=== PATIENT | male | born 1945 | race Caucasian/White ===

== ENCOUNTER → 2017-06-30 | Outpatient (CLI) | payer MEDICARE ==
[2017-06-30 12:46] LABS: ABSOLUTE BASOPHILS # (AUTO) 0.1 10^3/uL (0.0-0.2); ABSOLUTE EOSINOPHILS # (AUTO) 0.3 10^3/uL (0.0-0.6); ABSOLUTE LYMPHOCYTES (AUTO) 1.9 10^3/uL (0.5-4.7); ABSOLUTE MONOCYTES (AUTO) 0.8 10^3/uL (0.1-1.4); EOSINOPHILS % (AUTO) 3.6 % (0-6); HEMATOCRIT 49.6 % (37.9-51.0); HEMOGLOBIN 16.9 g/dL (13.5-17.0); LYMPHOCYTES % (AUTO) 22.9 % (13-45); MEAN CORPUSCULAR HEMOGLOBIN 32.2 pg (27.0-33.4); MEAN CORPUSCULAR HGB CONC 34.1 g/dL (32.0-36.0); MEAN CORPUSCULAR VOLUME 94 fl (80-97); MONOCYTES % (AUTO) 10.4 % (3-13); PLATELET COUNT 217 10^3/uL (150-450); RED BLOOD COUNT 5.26 10^6/uL (4.35-5.55); RED CELL DISTRIBUTION WIDTH 14.7 % (11.5-14.0); SEGMENTED NEUTROPHILS % (AUTO) 62.1 % (42-78); TOTAL CELLS COUNTED % (AUTO) 100 %; WHITE BLOOD COUNT 8.1 10^3/uL (4.0-10.5)
[2017-06-30 13:27] LABS: APPEARANCE,URINE SLIGHTLY-CLOUDY; BILIRUBIN,URINE NEGATIVE (NEGATIVE); COLOR,URINE AMBER; GLUCOSE, URINE NEGATIVE (NEGATIVE); KETONES,URINE NEGATIVE (NEGATIVE); LEUKOCYTE ESTERASE,URINE NEGATIVE (NEGATIVE); NITRITE,URINE NEGATIVE (NEGATIVE); PROTEIN,URINE NEGATIVE (NEGATIVE); URINE SPECIFIC GRAVITY 1.018
--- NOTE | 2017-06-30 15:04 | RADIOLOGY REPORT (SQ) ---
EXAM DESCRIPTION: CHEST PA/LATERAL COMPLETED DATE/TIME: 06/30/2017 12:33 pm REASON FOR STUDY: PRE OP COMPARISON: None. EXAM PARAMETERS: NUMBER OF VIEWS: two views TECHNIQUE: Digital Frontal and Lateral radiographic views of the chest acquired. RADIATION DOSE: NA LIMITATIONS: none FINDINGS: LUNGS AND PLEURA: No opacities, masses or pneumothorax. No pleural effusion. MEDIASTINUM AND HILAR STRUCTURES: No masses or contour abnormalities. HEART AND VASCULAR STRUCTURES: Heart normal size. No evidence for failure. BONES: No acute findings. HARDWARE: None in the chest. OTHER: No other significant finding. IMPRESSION: NO SIGNIFICANT RADIOGRAPHIC FINDING IN THE CHEST. TECHNICAL DOCUMENTATION: JOB ID: [id number] [email or web address]- All Rights Reserved
[2017-06-30 15:34] LABS: ANION GAP 13 (5-19); BLOOD UREA NITROGEN 12 mg/dL (7-20); CARBON DIOXIDE 26 mmol/L (22-30); CHLORIDE 102 mmol/L (98-107); GLUCOSE 95 mg/dL (75-110); POTASSIUM 4.8 mmol/L (3.6-5.0); SODIUM 140.9 mmol/L (137-145)
--- NOTE | 2017-07-01 10:29 | EKG REPORT ---
SEVERITY:- ABNORMAL ECG - SINUS RHYTHM RIGHT BUNDLE BRANCH BLOCK : Confirmed by: Lesley Mohamud 01-Jul-2017 10:28:35
== END ==
LOC: OD 11:36
PROVIDERS: ATTEND Orthopaedic Surgery
DX: Z01.810 Encounter for preprocedural cardiovascular examination (principal); Z01.812 Encounter for preprocedural laboratory examination; Z01.818 Encounter for other preprocedural examination
CPT/HCPCS: 36415; 71046; 80048; 81001; 85025; 93005; 93010

== ENCOUNTER 2017-07-15 05:19 | Inpatient (IN) | payer MEDICARE ==
[~2017-07-15 05:19] MED LIST: BUPIVACAINE INJ/PF LIPOSOME/PF 266 MG/20 ML SDV IJ PRN; CEFAZOLIN INJ 1 GM VIAL IV PRN; IBUPROFEN 800 MG/NS 250 ML IV PRN; LACTATED RINGERS 1000 ML IV PRN; LANSOPRAZOLE 15 MG TAB.RAP.DR PO PRN; LIDOCAINE 0.5% INJ-PF (5 MG/ML) 50 ML SDV SUBCUT PRN; OXYCODONE HCL SR 10 MG TABLET PO PRN; VANCOMYCIN HCL 1,000 MG in DEXTROSE 5%-WATER 250 ML IV PRN
[2017-07-15] MEDS ORDERED: THROMBIN (BOVINE) TOPICAL 20000 UNIT VIAL ONE (06:40)
[2017-07-15] MEDS ORDERED: THROMBIN (BOVINE) 5000 UNIT EPITAXIS KIT ONE (06:40)
[2017-07-15] MEDS ORDERED: BUPIVACAINE INJ/PF LIPOSOME/PF 266 MG/20 ML SDV ONE (06:40)
[2017-07-15] MEDS ORDERED: PROPOFOL INJ 200 MG/20 ML VIAL IV ONE (07:06)
[2017-07-15] MEDS ORDERED: MIDAZOLAM 2 MG/2 ML INJ ONE (07:06)
[2017-07-15] MEDS ORDERED: FENTANYL CITRATE INJ/PF 100 MCG/2 ML AMPUL ONE (07:06)
[2017-07-15] MEDS ORDERED: ACETAMINOPHEN 100 ML IV ONE ×2 (07:06→15:00)
[2017-07-15] MEDS ORDERED: EPHEDRINE SULFATE INJ 50 MG/1 ML AMPULE ONE (07:07)
[2017-07-15] MEDS ORDERED: TRANEXAMIC ACID INJ/PF 1,000 MG/10 ML SDV IV ONE ×3 (07:25→10:00)
[2017-07-15] MEDS ORDERED: KETAMINE HCL INJ 500 MG/10 ML VIAL ONE (07:25)
[2017-07-15] MEDS ORDERED: FENTANYL CITRATE INJ/PF 100 MCG/2 ML AMPUL IV PRN ×3 (07:35)
[2017-07-15] MEDS ORDERED: MORPHINE SULFATE 10 MG/ML INJ IV PRN ×4 (07:35→09:09)
[2017-07-15] MEDS ORDERED: DIPHENHYDRAMINE HCL 50 MG/ML VIAL IV PRN ×2 (07:35→09:09)
[2017-07-15] MEDS ORDERED: OXYCODONE-ACETAMINOPHEN 5-325 MG TABLET PO PRN ×2 (07:35)
[2017-07-15] MEDS ORDERED: MEPERIDINE HCL/PF INJ 25 MG/1 ML DISP.SYRIN IV PRN (07:35)
[2017-07-15] MEDS ORDERED: PROMETHAZINE HCL INJ 25 MG/1 ML VIAL IV PRN ×2 (07:35)
--- NOTE | 2017-07-15 08:56 | Operative Report ---
Operative Report DATE OF SURGERY: 07/15/17 PREOPERATIVE DIAGNOSIS: Right knee arthritis OPERATION: Right knee arthroplasty SURGEON: JUAN WELDON 1ST [employer]ORDS AUDITOR: MARYLU IQBAL ANESTHESIA: Spinal TISSUE REMOVED OR ALTERED: Bone to pathology ESTIMATED BLOOD LOSS: 100 PROCEDURE: Implants used: Femur: [place] triathlon #7 CR femur Tibia: 7 tibia Tibial liner: 11 mm CS insert Patella: 40 mm oval patella Procedure with the patient supine on the operating table the right the limb is prepped and draped in a sterile fashion. The limb was elevated for exsanguination and the tourniquet inflated to 280 torr. A standard midline median parapatellar approach the knee is taken. Access is gained to the femoral canal through the intercondylar notch. Intramedullary alignment instrumentation used to resect 10 mm of distal femur in 5 of valgus. Sizing guide indicated a size 7 femur. Appropriate cutting jig is then used to fashion anterior posterior and chamfer cuts. A trial reduction femurs performed and this is judged to be adequate. Attention was next turned to the tibia. Using an extra medullary alignment system 11 millimeters was resected off the lateral tibial plateau to accommodate a defect of the medial plateau. This is sized to a size 7 tibia. A trial reduction was now performed with a 7 femur and a 7 tibia using a 11 millimeters spacer. It is full extension and central patellofemoral tracking. The articular surface the patella was next resected using an oscillating saw. All trial implants were removed. Polymethylmethacrylate is mixed and used to cement the above implants in place. On adequate curing the cement excess cement was removed the tourniquet was deflated hemostasis obtained the wound is then closed in layers using interrupted Vicryl followed by brie. A sterile compressive dressing was applied and the patient returned to recovery room in satisfactory condition.
[2017-07-15] MEDS ORDERED: (PENDING PHARMACY ID) (Ranitidine Hcl [Ranitidine Hcl] 150 MG) PO PRN (09:08)
[2017-07-15] MEDS ORDERED: ACETAMINOPHEN 325 MG TABLET PO PRN (09:09)
[2017-07-15] MEDS ORDERED: ZOLPIDEM TARTRATE 5 MG TABLET PO PRN (09:09)
[2017-07-15] MEDS ORDERED: MAG HYDROX/AL HYDROX/SIMETH SUSP 30 ML UDCUP PO PRN (09:09)
[2017-07-15] MEDS ORDERED: ONDANSETRON HCL INJ/PF 4 MG/2 ML SDV IV PRN (09:09)
[2017-07-15] MEDS ORDERED: ONDANSETRON 4 MG TAB.RAPDIS PO PRN (09:09)
--- NOTE | 2017-07-15 09:43 | RADIOLOGY REPORT (SQ) ---
EXAM DESCRIPTION: KNEE RIGHT 2 VIEWS COMPLETED DATE/TIME: 07/15/2017 9:26 am REASON FOR STUDY: Post OP -Long Cassette in PACU M17.11 UNILATERAL PRIMARY OSTEOARTHRITIS, RIGHT KN EE COMPARISON: None. NUMBER OF VIEWS: Two views TECHNIQUE: Digital radiographic images of the right knee post-procedure. LIMITATIONS: None. FINDINGS: BONES: No worrisome or unexpected findings post-procedure. DEVICE: Right total knee replacement with patellar resurfacing. Anterior skin brie. SOFT TISSUES: No worrisome findings. Expected postoperative soft tissue changes. Atherosclerotic a rterial vascular calcification IMPRESSION: SATISFACTORY POSTOPERATIVE RIGHT KNEE. TECHNICAL DOCUMENTATION: JOB ID: [id number] [employer]- All Rights Reserved
[2017-07-15] MEDS ORDERED: (PENDING PHARMACY ID) (Atenolol [Atenolol] 100 MG) PO SCH (10:00)
[2017-07-15] MEDS ORDERED: ASCORBIC ACID PO SCH (10:00)
[2017-07-15] MEDS ORDERED: LISINOPRIL PO SCH (10:00)
[2017-07-15] MEDS ORDERED: DICLOFENAC SODIUM PO SCH (10:00)
[2017-07-15] MEDS ORDERED: [UNRECOGNIZED DRUG - OTHER] PO SCH (10:00)
[2017-07-15] MEDS ORDERED: VIT B12 PO SCH (10:00)
[2017-07-15] MEDS ORDERED: FOLIC ACID PO SCH (10:00)
[2017-07-15] MEDS ORDERED: B6 PO SCH (10:00)
[2017-07-15] MEDS ORDERED: [UNRECOGNIZED DRUG - OTHER] PO SCH (10:00)
[2017-07-15] MEDS ORDERED: ASCORBATE SODIUM PO SCH (10:00)
[2017-07-15] MEDS ORDERED: LISINOPRIL 10 MG TABLET PO ONE (12:00)
[2017-07-15] MEDS ORDERED: ALLOPURINOL 300 MG TABLET PO ONE (12:30)
[2017-07-15] MEDS ORDERED: ATENOLOL 50 MG TABLET PO ONE (12:30)
[2017-07-15] MEDS: MORPHINE SULFATE 10 MG/ML INJ IM PRN ×2 (12:50→16:20)
[2017-07-15] MEDS: OXYCODONE HCL SR 10 MG TABLET PO SCH ×2 (12:51→21:08)
[2017-07-15] MEDS ORDERED: AMLODIPINE BESYLATE 2.5 MG TABLET PO ONE (13:00)
[2017-07-15] MEDS: IBUPROFEN 800 MG in NORMAL SALINE 250 ML IV SCH ×2 (15:52→21:10)
[2017-07-15] MEDS ORDERED: ASPIRIN 81 MG TABLET, ENT COATED PO ONE (17:30)
[2017-07-15] MEDS: PREGABALIN 75 MG CAPSULE PO SCH (17:54)
[2017-07-15] MEDS ORDERED: VANCOMYCIN HCL 1,000 MG in DEXTROSE 5%-WATER 250 ML IV ONE (21:00)
[2017-07-15] MEDS: ATORVASTATIN CALCIUM 40 MG TABLET PO SCH (21:08)
[2017-07-16] MEDS: LANSOPRAZOLE 30 MG TAB.RAP.DR PO SCH (06:06)
[2017-07-16] MEDS: IBUPROFEN 800 MG in NORMAL SALINE 250 ML IV SCH ×3 (06:06→21:08)
[2017-07-16 06:51] LABS: HEMATOCRIT 40.3 % (37.9-51.0); HEMOGLOBIN 13.6 g/dL (13.5-17.0); MEAN CORPUSCULAR HEMOGLOBIN 32.6 pg (27.0-33.4); MEAN CORPUSCULAR HGB CONC 33.8 g/dL (32.0-36.0); MEAN CORPUSCULAR VOLUME 96 fl (80-97); PLATELET COUNT 156 10^3/uL (150-450); RED BLOOD COUNT 4.19 10^6/uL (4.35-5.55); RED CELL DISTRIBUTION WIDTH 14.8 % (11.5-14.0); WHITE BLOOD COUNT 10.8 10^3/uL (4.0-10.5)
[2017-07-16 07:05] LABS: ANION GAP 8 (5-19); BLOOD UREA NITROGEN 16 mg/dL (7-20); CALCIUM 8.9 mg/dL (8.4-10.2); CARBON DIOXIDE 27 mmol/L (22-30); CHLORIDE 104 mmol/L (98-107); GLUCOSE 106 mg/dL (75-110); POTASSIUM 4.4 mmol/L (3.6-5.0); SODIUM 138.7 mmol/L (137-145)
[2017-07-16] MEDS ORDERED: (PENDING PHARMACY ID) (Ranitidine Hcl [Zantac 150 Mg Tablet] 150 MG) PO PRN (07:10)
[2017-07-16] MEDS ORDERED: (PENDING PHARMACY ID) (Ranitidine Hcl [Ranitidine Hcl] 150 MG) PO PRN (07:20)
[2017-07-16] MEDS ORDERED: FAMOTIDINE 20 MG TABLET PO PRN (07:21)
[2017-07-16] MEDS ORDERED: ONDANSETRON 4 MG TAB.RAPDIS PO PRN (07:30)
[2017-07-16] MEDS ORDERED: ONDANSETRON HCL INJ/PF 4 MG/2 ML SDV IV PRN (07:30)
[2017-07-16] MEDS: OXYCODONE HCL IR 5 MG TABLET PO PRN ×2 (07:57→18:01)
--- NOTE | 2017-07-16 09:09 | PDOC PROGRESS REPORT ---
Subjective Progress Note for:: 07/16/17 Reason For Visit: RIGHT KNEE ARTHRITIS 72-year-old white male postop day 1 from right knee arthroplasty. Patient complaining of right proximal thigh pain. Physical Exam Vital Signs: Temp Pulse Resp BP Pulse Ox 37.1 C 79 18 119/57 L 94 07/16/17 07:54 07/16/17 07:54 07/16/17 07:54 07/16/17 07:54 07/16/17 07:54 Intake & Output 07/15/17 07/16/17 07/17/17 06:59 06:59 06:59 Intake Total 0 4340 Output Total 1650 Balance 0 2690 General appearance: PRESENT: mild distress Head exam: PRESENT: normocephalic Respiratory exam: PRESENT: unlabored Cardiovascular exam: PRESENT: RRR Pulses: PRESENT: +1 pedal pulses bilateral Vascular exam: PRESENT: normal capillary refill GI/Abdominal exam: PRESENT: soft Rectal exam: PRESENT: deferred Extremities exam: PRESENT: other - Right knee dressing clean dry and intact. Patient able to do a straight leg raise with minimal difficulty. Mild flexion contracture present. Neurological exam: PRESENT: alert, awake, oriented to person, oriented to place , oriented to time, oriented to situation. ABSENT: motor sensory deficit Psychiatric exam: PRESENT: appropriate affect, normal mood. ABSENT: homicidal ideation, suicidal ideation Skin exam: PRESENT: dry, intact, warm. ABSENT: cyanosis, rash Results Laboratory Results: 07/16/17 06:01 07/16/17 06:01 07/16/17 07/16/17 06:01 06:01 WBC 10.8 H RBC 4.19 L Hgb 13.6 Hct 40.3 MCV 96 MCH 32.6 MCHC 33.8 RDW 14.8 H Plt Count 156 Sodium 138.7 Potassium 4.4 Chloride 104 Carbon Dioxide 27 Anion Gap 8 BUN 16 Creatinine 0.69 Est GFR ( Amer) > 60 Est GFR (Non-Af Amer) > 60 Glucose 106 Calcium 8.9 Impressions: Knee X-Ray 07/15/17 09:10 IMPRESSION: SATISFACTORY POSTOPERATIVE RIGHT KNEE. Status: Imported from PACS Assessment & Plan - Diagnosis (1) Arthritis of right knee Is this a current diagnosis for this admission?: Yes Plan: 72-year-old white male postop day 1 right knee arthroplasty. Anticipate ongoing physical therapy in house and subsequent transfer to a alf facility when bed available. - Time Time Spent with patient: 15-24 minutes Anticipated discharge: SNF Within: when bed available
[2017-07-16] MEDS ORDERED: (PENDING PHARMACY ID) (Diclofenac Sodium [Voltaren] 75 MG) PO SCH (10:00)
[2017-07-16] MEDS ORDERED: CYANOCOBALAMIN PO SCH ×2 (10:00)
[2017-07-16] MEDS: CYANOCOBALAMIN (VITAMIN B-12) 1,000 MCG TABLET PO SCH (10:20)
[2017-07-16] MEDS: ASPIRIN 81 MG TABLET, ENT COATED PO SCH (10:20)
[2017-07-16] MEDS: LISINOPRIL 10 MG TABLET PO SCH (10:20)
[2017-07-16] MEDS: ALLOPURINOL 300 MG TABLET PO SCH (10:20)
[2017-07-16] MEDS: ASCORBIC ACID 500 MG TABLET PO SCH (10:20)
[2017-07-16] MEDS: AMLODIPINE BESYLATE 2.5 MG TABLET PO SCH (10:20)
[2017-07-16] MEDS: OXYCODONE HCL SR 10 MG TABLET PO SCH ×2 (10:20→21:25)
[2017-07-16] MEDS: PREGABALIN 75 MG CAPSULE PO SCH ×2 (10:21→18:01)
[2017-07-16] MEDS: DICLOFENAC SODIUM 25 MG TABLET.DR PO SCH ×2 (10:21→21:25)
[2017-07-16] MEDS: ATENOLOL 50 MG TABLET PO SCH (10:21)
[2017-07-16] MEDS: ATORVASTATIN CALCIUM 40 MG TABLET PO SCH (21:25)
[2017-07-17 04:59] LABS: HEMATOCRIT 37.8 % (37.9-51.0); HEMOGLOBIN 12.8 g/dL (13.5-17.0); MEAN CORPUSCULAR HEMOGLOBIN 32.2 pg (27.0-33.4); MEAN CORPUSCULAR HGB CONC 33.9 g/dL (32.0-36.0); MEAN CORPUSCULAR VOLUME 95 fl (80-97); PLATELET COUNT 146 10^3/uL (150-450); RED BLOOD COUNT 3.98 10^6/uL (4.35-5.55); RED CELL DISTRIBUTION WIDTH 14.4 % (11.5-14.0); WHITE BLOOD COUNT 11.8 10^3/uL (4.0-10.5)
[2017-07-17] MEDS: IBUPROFEN 800 MG in NORMAL SALINE 250 ML IV SCH (05:15)
[2017-07-17] MEDS: LANSOPRAZOLE 30 MG TAB.RAP.DR PO SCH (06:01)
--- NOTE | 2017-07-17 06:48 | PDOC PROGRESS REPORT ---
Subjective Progress Note for:: 07/17/17 Subjective:: 72-year-old white male 2 days status post total right knee arthroplasty. Reason For Visit: RIGHT KNEE ARTHRITIS Physical Exam Vital Signs: Temp Pulse Resp BP Pulse Ox 37.4 C 78 18 148/60 H 92 07/16/17 16:13 07/16/17 16:13 07/16/17 16:13 07/16/17 16:13 07/16/17 16:13 Intake & Output 07/15/17 07/16/17 07/17/17 06:59 06:59 06:59 Intake Total 0 4340 2340 Output Total 1650 1250 Balance 0 2690 1090 General appearance: PRESENT: no acute distress, well-developed, well-nourished Head exam: PRESENT: atraumatic, normocephalic Respiratory exam: PRESENT: unlabored Pulses: PRESENT: normal dorsalis pedis pul, +2 pedal pulses bilateral Vascular exam: PRESENT: normal capillary refill Additional comments: Patient sitting upright in hospital bed this morning with bilateral lower extremities in full extension. His OpSite compression dressing is removed and his honeycomb dressing beneath it is clean dry and intact. This OpSite dressing is left in place. He has minimal pedal edema and brisk capillary refill to toes on bilateral lower extremities. His sensorimotor functions are intact and his distal neurovascular exam is intact. Musculoskeletal exam: PRESENT: ambulatory Additional comments: Patient was ambulatory postop day 1 and relating 100 feet with physical therapy. Physical therapy was not present in the hospital yesterday therefore he did not work with PT. He will continue to work with physical therapy today to improve distance of ambulation and strength range of motion of right lower extremity. Neurological exam: PRESENT: alert, awake, oriented to person, oriented to place , oriented to time, oriented to situation, CN II-XII grossly intact. ABSENT: motor sensory deficit Psychiatric exam: PRESENT: appropriate affect, normal mood, other - Patient very talkative.. ABSENT: homicidal ideation, suicidal ideation Skin exam: PRESENT: dry, intact, warm. ABSENT: cyanosis, rash Results Laboratory Results: 07/17/17 04:34 07/16/17 06:01 07/16/17 07/16/17 07/17/17 06:01 06:01 04:34 WBC 10.8 H 11.8 H RBC 4.19 L 3.98 L Hgb 13.6 12.8 L Hct 40.3 37.8 L MCV 96 95 MCH 32.6 32.2 MCHC 33.8 33.9 RDW 14.8 H 14.4 H Plt Count 156 146 L Sodium 138.7 Potassium 4.4 Chloride 104 Carbon Dioxide 27 Anion Gap 8 BUN 16 Creatinine 0.69 Est GFR ( Amer) > 60 Est GFR (Non-Af Amer) > 60 Glucose 106 Calcium 8.9 Impressions: Knee X-Ray 07/15/17 09:10 IMPRESSION: SATISFACTORY POSTOPERATIVE RIGHT KNEE. Assessment & Plan - Diagnosis (1) Arthritis of right knee Is this a current diagnosis for this admission?: Yes Plan: 72-year-old white male 2 days status post total right knee arthroplasty. Patient's compression dressing was removed and honeycomb dressing underneath is clean dry and intact. This is left in place. He will continue to work with physical therapy to improve distance of independent ambulation and strength range of motion of right lower extremity. Discharge planning has found placement for him in a care home facility which he will likely be discharged to home on Thursday. Once he is discharged he will [facility] for [facility] 2 weeks status post surgery for reevaluation and staple removal. (2) Acute blood loss anemia Is this a current diagnosis for this admission?: Yes Plan: Patient's hemoglobin and hematocrit were 12.8 and 37.8 respectively. This is likely the result of acute blood loss from his operation. These values are improved from postop day 1 and I believe it will resolve spontaneously. If they persist at low values she will likely benefit from transfusion of 2 units of packed red blood cells.
[2017-07-17] MEDS: CYANOCOBALAMIN (VITAMIN B-12) 1,000 MCG TABLET PO SCH (09:21)
[2017-07-17] MEDS: ASCORBIC ACID 500 MG TABLET PO SCH (09:22)
[2017-07-17] MEDS: ALLOPURINOL 300 MG TABLET PO SCH (09:22)
[2017-07-17] MEDS: ASPIRIN 81 MG TABLET, ENT COATED PO SCH (09:22)
[2017-07-17] MEDS: OXYCODONE HCL IR 5 MG TABLET PO PRN ×2 (09:22→15:56)
[2017-07-17] MEDS: PREGABALIN 75 MG CAPSULE PO SCH ×2 (09:22→17:17)
[2017-07-17] MEDS: DICLOFENAC SODIUM 25 MG TABLET.DR PO SCH ×2 (09:22→20:50)
[2017-07-17] MEDS: LISINOPRIL 10 MG TABLET PO SCH ×2 (09:27→20:49)
[2017-07-17] MEDS: AMLODIPINE BESYLATE 2.5 MG TABLET PO SCH (09:27)
[2017-07-17] MEDS: ATENOLOL 50 MG TABLET PO SCH (09:27)
[2017-07-17] MEDS: ATORVASTATIN CALCIUM 40 MG TABLET PO SCH (20:50)
[2017-07-18] MEDS: ATENOLOL 50 MG TABLET PO SCH (00:30)
[2017-07-18] MEDS: AMLODIPINE BESYLATE 2.5 MG TABLET PO SCH ×2 (00:30→10:15)
[2017-07-18] MEDS: LANSOPRAZOLE 30 MG TAB.RAP.DR PO SCH (05:28)
[2017-07-18 06:21] LABS: HEMATOCRIT 40.8 % (37.9-51.0); HEMOGLOBIN 13.6 g/dL (13.5-17.0); MEAN CORPUSCULAR HEMOGLOBIN 32.3 pg (27.0-33.4); MEAN CORPUSCULAR HGB CONC 33.5 g/dL (32.0-36.0); MEAN CORPUSCULAR VOLUME 97 fl (80-97); PLATELET COUNT 191 10^3/uL (150-450); RED BLOOD COUNT 4.22 10^6/uL (4.35-5.55); RED CELL DISTRIBUTION WIDTH 14.4 % (11.5-14.0); WHITE BLOOD COUNT 11.6 10^3/uL (4.0-10.5)
--- NOTE | 2017-07-18 07:49 | PDOC TRANSFER SUMMARY ---
General - Admit/Disc Date/PCP Admission Date/Primary Care Provider: 07/15/17 05:19 Discharge Date: 07/18/17 - Discharge Diagnosis (1) Arthritis of right knee Is this a current diagnosis for this admission?: Yes - Additional Information Resuscitation Status: Full Code Discharge Diet: As Tolerated Discharge Activity: Balance Activity w/Rest, No Driving Prescriptions: Aspirin [Aspirin EC] 81 mg PO DAILY #21 tablet. Oxycodone HCl 5 mg PO Q6 PRN #40 tablet PRN Reason: Home Medications: Allopurinol [Zyloprim 300 mg Tablet] 300 mg PO DAILY 07/15/17 Amlodipine Besylate [Norvasc 5 mg Tablet] 2.5 mg PO DAILY 07/15/17 Ascorbic Acid [Vitamin C 500 mg Tablet] 1,000 mg PO DAILY 07/15/17 Aspirin [Adult Low Dose Aspirin EC] 81 mg PO DAILY 07/15/17 Atenolol [Tenormin 100 mg Tablet] 100 mg PO DAILY 07/15/17 Atorvastatin Calcium [Lipitor 40 mg Tablet] 40 mg PO DAILY 07/15/17 Cholecalciferol (Vitamin D3) [Vitamin D3 1000 Unit Tablet] 1,000 unit PO BID Cyanocobalamin (Vitamin B-12) [Vitamin B12] 2,500 mcg PO DAILY 07/15/17 Diclofenac Sodium [Voltaren] 75 mg PO BID 07/15/17 Lisinopril [Zestril] 60 mg PO QPM 07/15/17 Loratadine [Claritin 10 mg Tablet] 10 mg PO DAILY 07/15/17 Multivitamin [Multiple Vitamins] 1 tab PO DAILY 07/15/17 Ranitidine HCl [Zantac 150 mg Tablet] 150 mg PO DAILYP PRN 07/15/17 Aspirin [Aspirin EC] 81 mg PO DAILY #21 tablet. 07/18/17 Oxycodone HCl 5 mg PO Q6 PRN #40 tablet 07/18/17 History of Present Illness Admission Date/PCP: 07/15/17 05:19 Patient complains of: Right Knee Pain History of Present Illness: ESTRELLA GALVAN is a 72 year old male with long-standing history of right knee pain. Patient attempted conservative measures without resolution of his symptoms. At that point decision was made to proceed with operative intervention which included right total knee arthroplasty. Risks and benefits were explained to the patient patient verbalized understanding consented for the procedure. Hospital Course Hospital Course: On 07/15/17 patient underwent right total knee arthroplasty without complications. On postop day #1 he was started on physical therapy and continue to ambulate ambulate without significant issues. Patient's pain continued to improve throughout his hospital course. Hematocrit did decrease to 37.8 but ultimately normalized to 40.8 on 07/18/17. Patient has been taking aspirin 81 mg daily for DVT prophylaxis. Has progressed appropriately throughout hospital course. Physical Exam Vital Signs: Temp Pulse Resp BP Pulse Ox 98.2 F 72 20 154/49 H 96 07/17/17 20:28 07/17/17 20:28 07/17/17 20:28 07/17/17 20:28 07/17/17 20:28 Intake & Output 07/17/17 07/18/17 07/19/17 06:59 06:59 06:59 Intake Total 2458 1980 Output Total 1800 Balance 658 1980 Weight 125 kg General appearance: PRESENT: no acute distress, well-developed, well-nourished Head exam: PRESENT: atraumatic, normocephalic Eye exam: PRESENT: conjunctiva pink, EOMI, PERRLA. ABSENT: scleral icterus Ear exam: PRESENT: normal external ear exam Mouth exam: PRESENT: moist, tongue midline Neck exam: ABSENT: carotid bruit, JVD, lymphadenopathy, thyromegaly Respiratory exam: PRESENT: clear to auscultation catarina. ABSENT: rales, rhonchi, wheezes Cardiovascular exam: PRESENT: RRR. ABSENT: diastolic murmur, rubs, systolic murmur Pulses: PRESENT: normal dorsalis pedis pul Vascular exam: PRESENT: normal capillary refill GI/Abdominal exam: PRESENT: normal bowel sounds, soft. ABSENT: distended, guarding, mass, organolmegaly, rebound, tenderness Rectal exam: PRESENT: deferred Extremities exam: PRESENT: full ROM. ABSENT: calf tenderness, clubbing, pedal edema Musculoskeletal exam: PRESENT: other - Right knee: Dressing clean/dry/intact no erythema or drainage. Intact plantar flexion/dorsiflexion. No calf tenderness. Negative Homans. No sensory deficits. Neurological exam: PRESENT: alert, awake, oriented to person, oriented to place , oriented to time, oriented to situation, CN II-XII grossly intact. ABSENT: motor sensory deficit Psychiatric exam: PRESENT: appropriate affect, normal mood. ABSENT: homicidal ideation, suicidal ideation Skin exam: PRESENT: dry, intact, warm. ABSENT: cyanosis, rash Results Laboratory Results: 07/18/17 06:04 07/16/17 06:01 07/18/17 06:04 WBC 11.6 H RBC 4.22 L Hgb 13.6 Hct 40.8 MCV 97 MCH 32.3 MCHC 33.5 RDW 14.4 H Plt Count 191 Impressions: Knee X-Ray 07/15/17 09:10 IMPRESSION: SATISFACTORY POSTOPERATIVE RIGHT KNEE. Transfer Plan - Disposition Transfer Plan: 72-year-old white male 3 days status post total right knee arthroplasty. OpSite dressing is clean dry and intact. This is left in place. He will continue to work with physical therapy to improve distance of independent ambulation and strength range of motion of right lower extremity. Discharge planning has found placement for him in a senior care facility which he will likely be discharged Thursday or Thursday. Once he is discharged he will follow-up with [facility] for surgery 2 weeks status post surgery for reevaluation and staple removal.
[2017-07-18] MEDS: ASPIRIN 81 MG TABLET, ENT COATED PO SCH (10:14)
[2017-07-18] MEDS: LISINOPRIL 10 MG TABLET PO SCH (10:15)
[2017-07-18] MEDS: ASCORBIC ACID 500 MG TABLET PO SCH (10:16)
[2017-07-18] MEDS: PREGABALIN 75 MG CAPSULE PO SCH ×2 (10:16→17:01)
[2017-07-18] MEDS: ALLOPURINOL 300 MG TABLET PO SCH (10:16)
[2017-07-18] MEDS: CYANOCOBALAMIN (VITAMIN B-12) 1,000 MCG TABLET PO SCH (10:16)
[2017-07-18] MEDS: DICLOFENAC SODIUM 25 MG TABLET.DR PO SCH ×2 (10:17→21:29)
[2017-07-18] MEDS: OXYCODONE HCL IR 5 MG TABLET PO PRN ×2 (10:21→16:16)
[2017-07-18] MEDS: MORPHINE SULFATE 10 MG/ML INJ IM PRN ×3 (17:06→21:29)
[2017-07-18] MEDS: ATORVASTATIN CALCIUM 40 MG TABLET PO SCH (21:29)
[2017-07-19] MEDS: MORPHINE SULFATE 10 MG/ML INJ IM PRN ×3 (01:29→14:10)
[2017-07-19] MEDS: LANSOPRAZOLE 30 MG TAB.RAP.DR PO SCH (05:50)
[2017-07-19] MEDS: OXYCODONE HCL IR 5 MG TABLET PO PRN ×2 (07:15→12:58)
[2017-07-19] MEDS: AMLODIPINE BESYLATE 2.5 MG TABLET PO SCH (09:48)
[2017-07-19] MEDS: ASPIRIN 81 MG TABLET, ENT COATED PO SCH (09:48)
[2017-07-19] MEDS: ASCORBIC ACID 500 MG TABLET PO SCH (09:48)
[2017-07-19] MEDS: PREGABALIN 75 MG CAPSULE PO SCH (09:49)
[2017-07-19] MEDS: ALLOPURINOL 300 MG TABLET PO SCH (09:49)
[2017-07-19] MEDS: LISINOPRIL 10 MG TABLET PO SCH (09:49)
[2017-07-19] MEDS: CYANOCOBALAMIN (VITAMIN B-12) 1,000 MCG TABLET PO SCH (09:50)
[2017-07-19] MEDS: DICLOFENAC SODIUM 25 MG TABLET.DR PO SCH (09:51)
[2017-07-19] MEDS: ATENOLOL 50 MG TABLET PO SCH (09:51)
[2017-07-19 12:09] VITALS: BP 107/62
== END 2017-07-19 15:22 | DRG 470 ==
LOC: INOR 05:19 → EDSTATUS 08:15 → 4S 10:31
PROVIDERS: ADMIT Orthopaedic Surgery; ATTEND Orthopaedic Surgery
PROC: 0SRC0J9 Replacement of Right Knee Joint with Synthetic Substitute, Cemented, Open Approach (ICD-10-PCS; principal; 2017-07-15 07:30)
DX: M17.11 Unilateral primary osteoarthritis, right knee (principal); Z68.41 Body mass index [BMI] 40.0-44.9, adult; D62 Acute posthemorrhagic anemia; E66.9 Obesity, unspecified; E78.5 Hyperlipidemia, unspecified; I10 Essential (primary) hypertension; K21.9 Gastro-esophageal reflux disease without esophagitis; M10.9 Gout, unspecified; Z82.49 Family history of ischemic heart disease and other diseases of the circulatory system; Z79.899 Other long term (current) drug therapy; Z79.82 Long term (current) use of aspirin
CPT/HCPCS: 01402; 36415; 80048; 85027; 88304; 88311; 94799; C9290; G8978-GP; G8979-GP; G8987-GO; G8988-GO; G8989-GO; J0131; J0690; J1741; J2250; J2270; J2405; J2704; J3010; J3370; J3490; J7050; J7060; J7120

== ENCOUNTER → 2017-09-02 | Outpatient (CLI) | payer MEDICARE ==
[2017-09-02 14:44] LABS: ABSOLUTE BASOPHILS # (AUTO) 0.1 10^3/uL (0.0-0.2); ABSOLUTE EOSINOPHILS # (AUTO) 0.3 10^3/uL (0.0-0.6); ABSOLUTE LYMPHOCYTES (AUTO) 2.3 10^3/uL (0.5-4.7); ABSOLUTE MONOCYTES (AUTO) 0.8 10^3/uL (0.1-1.4); ABSOLUTE NEUT (AUTO) 4.6 10^3/uL (1.7-8.2); BASOPHILS % (AUTO) 1.4 % (0-2); EOSINOPHILS % (AUTO) 3.5 % (0-6); HEMATOCRIT 44.6 % (37.9-51.0); HEMOGLOBIN 15.3 g/dL (13.5-17.0); LYMPHOCYTES % (AUTO) 28.6 % (13-45); MEAN CORPUSCULAR HEMOGLOBIN 31.9 pg (27.0-33.4); MEAN CORPUSCULAR HGB CONC 34.2 g/dL (32.0-36.0); MEAN CORPUSCULAR VOLUME 93 fl (80-97); MONOCYTES % (AUTO) 10.3 % (3-13); PLATELET COUNT 240 10^3/uL (150-450); RED CELL DISTRIBUTION WIDTH 14.4 % (11.5-14.0); SEGMENTED NEUTROPHILS % (AUTO) 56.2 % (42-78); TOTAL CELLS COUNTED % (AUTO) 100 %; WHITE BLOOD COUNT 8.1 10^3/uL (4.0-10.5)
[2017-09-02 15:02] LABS: ANION GAP 11 (5-19); BLOOD UREA NITROGEN 18 mg/dL (7-20); CALCIUM 9.6 mg/dL (8.4-10.2); CARBON DIOXIDE 25 mmol/L (22-30); CHLORIDE 106 mmol/L (98-107); GLUCOSE 124 mg/dL (75-110); POTASSIUM 4.3 mmol/L (3.6-5.0); SODIUM 142.1 mmol/L (137-145)
--- NOTE | 2017-09-02 15:43 | RADIOLOGY REPORT (SQ) ---
EXAM DESCRIPTION: CHEST PA/LATERAL COMPLETED DATE/TIME: 09/02/2017 2:29 pm REASON FOR STUDY: PRE OP COMPARISON: 06/30/2017. EXAM PARAMETERS: NUMBER OF VIEWS: two views TECHNIQUE: Digital Frontal and Lateral radiographic views of the chest acquired. RADIATION DOSE: NA LIMITATIONS: none FINDINGS: LUNGS AND PLEURA: No opacities, masses or pneumothorax. No pleural effusion. MEDIASTINUM AND HILAR STRUCTURES: No masses or contour abnormalities. HEART AND VASCULAR STRUCTURES: Heart normal size. No evidence for failure. BONES: No acute findings. HARDWARE: None in the chest. OTHER: No other significant finding. IMPRESSION: NO SIGNIFICANT RADIOGRAPHIC FINDING IN THE CHEST. TECHNICAL DOCUMENTATION: JOB ID: [id number] [employer]- All Rights Reserved Reading location - IP/workstation name: [email or web address]
[2017-09-02 19:11] LABS: APPEARANCE,URINE CLEAR; BILIRUBIN,URINE NEGATIVE (NEGATIVE); COLOR,URINE YELLOW; GLUCOSE, URINE NEGATIVE (NEGATIVE); KETONES,URINE NEGATIVE (NEGATIVE); LEUKOCYTE ESTERASE,URINE NEGATIVE (NEGATIVE); NITRITE,URINE NEGATIVE (NEGATIVE); PROTEIN,URINE NEGATIVE (NEGATIVE); URINE SPECIFIC GRAVITY 1.026
--- NOTE | 2017-09-02 22:10 | EKG REPORT ---
SEVERITY:- ABNORMAL ECG - SINUS RHYTHM RIGHT BUNDLE BRANCH BLOCK : Confirmed by: Lesley Mohamud 02-Sep-2017 22:09:39
== END ==
LOC: OD 13:48
PROVIDERS: ATTEND Orthopaedic Surgery
DX: Z01.810 Encounter for preprocedural cardiovascular examination (principal); Z01.812 Encounter for preprocedural laboratory examination; Z01.818 Encounter for other preprocedural examination
CPT/HCPCS: 36415; 71046; 80048; 81001; 85025; 93005; 93010

== ENCOUNTER 2017-09-28 05:24 | Inpatient (IN) | payer MEDICARE ==
--- NOTE | 2017-09-27 07:43 | Physician Advisory Note ---
Physician Advisor ProgressNote .: Pursuant to the plan for Sigifredo Araujo, I have reviewed the medical record for this patient. Physician Advisor Statement: Status: Appropriate to come in as Inpatient for TKA. Pt can be expected to require extended rehabilitation time post-op including SNF rehab again. - 72yo with recent Rt TKA, which required SNF rehab afterwards. - PMH includes obesity w/ BMI 40.1, early dementia, HTN, HLD, GERD, kidney stones, "back problems" (L3, L4); he has had bilateral knee meniscus repair prior to this. Also (+) RBBB on EKG per the H&P for pt's 07/15/17 admission, which states he has had back surgery on L3, L4, L5. - Nursing eval pre-op indicates pt has no one to provide care for him post d/c, & needs assistance beyond what family can provide. What still needs to be documented by attending to support surgical necessity: 1. H&P needs to focus on the current knee that needs surgery, explaining why this is needed. Using a post-op visit note for H&P for the 2nd joint to be taken to surgery is only useful if the note also has a specific section focused on the 2nd knee & its exam/findings/clinical issues. Hardly commenting on this knee in what is supposed to be the H&P for this surgical stay allows a payer to dispute surgical necessity for THIS knee, saying there is no clear indication in the H&P that pt needs surgery on THIS knee. 2. What nonsurgical or conservative options have been tried for THIS knee ( Choose ALL that apply): A. NSAIDS or Analgesics What, how much, & for how long has patient used them ? (or not tolerated due to ) - H&P indicates diclofenac topical, & "pain cream combo" - how long used ? any other meds tried? B. Flexibility and Muscle Strengthening exercises (can be a home exercise program) C. PT (or unable to tolerate PT due to ) D. Assistive device use (cane, walker, brace) What? How long? E. Therapeutic injections What? How long? F. Weight loss attempts (if appropriate) - describe VS: G. Nonsurgical medical management would be ineffective or counterproductive and the best treatment option is surgical BECAUSE: (1) Bone on Bone articulation (2) Severe deformity (3) Pain & significant disabling interference with ADLs as explicitly documented below (4) Failed previous osteotomy, failed unicompartmental knee replacement, failed previous joint arthroplasty needing revision due to 3. The above treatments have not proven successful for THIS knee, & this patient continues with (Choose ALL that apply): A. Pain in joint at rest (pain rating scale: __/10) B. Pain in joint with activity (pain rating scale: __/10) C. Pain iin joint with weight bearing (pain rating scale: __/10) 4. Radiologic findings pre-op of this knee include (Choose ALL that apply): A. Subchondral cysts B. Subchondral sclerosis C. Periarticular osteophytes D. Joint space narrowing / endstage joint disease E. Joint subluxation F. AVN / osteonecrosis 5. Physical exam findings pre-op of this knee 6. H&P already states pt has pain or functional disability from OA interfering with walking, stair climbing, & dressing or bathing - specifics on this would be helpful (how far can he walk? what is limitation with stairs? what is interfered with r.e. dressing or bathing, or both?, ...) - Nursing pre-op eval also indicates pt cannot do vigorous activities or walk > 1 mile, & is limited quite a lot with walking 1 flight of stairs, lifting/ carrying groceries, & bending/kneeling/stooping. Thanks for your help in documenting the reasons for the excellent care you provide! CK
[2017-09-28] MEDS ORDERED: TETRACAINE HCL/PF 20MG/2ML AMPULE (SPINAL) ONE (06:32)
[2017-09-28] MEDS ORDERED: LIDOCAINE 2% INJ-PF (20 MG/ML) 10 ML AMPUL ONE (06:36)
[2017-09-28] MEDS ORDERED: MIDAZOLAM 2 MG/2 ML INJ ONE (06:37)
[2017-09-28] MEDS ORDERED: ONDANSETRON HCL INJ/PF 4 MG/2 ML SDV ONE (06:37)
[2017-09-28] MEDS ORDERED: KETAMINE HCL INJ 500 MG/10 ML VIAL ONE (06:37)
[2017-09-28] MEDS ORDERED: DEXAMETHASONE SOD PHOSPHATE INJ 4 MG/1 ML VIAL ONE (06:37)
[2017-09-28] MEDS ORDERED: FENTANYL CITRATE INJ/PF 100 MCG/2 ML AMPUL ONE (06:37)
[2017-09-28] MEDS ORDERED: EPHEDRINE SULFATE INJ 50 MG/1 ML AMPULE ONE ×2 (06:38→09:21)
[2017-09-28] MEDS ORDERED: PROPOFOL INJ 200 MG/20 ML VIAL IV ONE (06:38)
[2017-09-28] MEDS ORDERED: ACETAMINOPHEN 100 ML IV ONE ×2 (06:38→14:45)
[2017-09-28] MEDS ORDERED: THROMBIN (BOVINE) 5000 UNIT EPITAXIS KIT ONE (06:41)
[2017-09-28] MEDS ORDERED: THROMBIN (BOVINE) TOPICAL 20000 UNIT VIAL ONE (06:41)
[2017-09-28] MEDS ORDERED: BUPIVACAINE INJ/PF LIPOSOME/PF 266 MG/20 ML SDV ONE (06:41)
[2017-09-28] MEDS ORDERED: TRANEXAMIC ACID INJ/PF 1,000 MG/10 ML SDV IV ONE ×3 (06:54→10:00)
[2017-09-28] MEDS ORDERED: PROMETHAZINE HCL INJ 25 MG/1 ML VIAL IV PRN ×2 (08:10)
[2017-09-28] MEDS ORDERED: FENTANYL CITRATE INJ/PF 100 MCG/2 ML AMPUL IV PRN ×3 (08:10)
[2017-09-28] MEDS ORDERED: MEPERIDINE HCL/PF INJ 25 MG/1 ML DISP.SYRIN IV PRN (08:10)
[2017-09-28] MEDS ORDERED: DIPHENHYDRAMINE HCL 50 MG/ML VIAL IV PRN ×2 (08:10→08:45)
[2017-09-28] MEDS ORDERED: OXYCODONE-ACETAMINOPHEN 5-325 MG TABLET PO PRN ×2 (08:10)
[2017-09-28] MEDS ORDERED: MORPHINE SULFATE 10 MG/ML INJ IV PRN ×3 (08:10→08:45)
[2017-09-28] MEDS ORDERED: (PENDING PHARMACY ID) (Ranitidine Hcl [Zantac 150 Mg Tablet] 150 MG) PO PRN (08:44)
--- NOTE | 2017-09-28 08:44 | Operative Report ---
Operative Report DATE OF SURGERY: 09/28/17 PREOPERATIVE DIAGNOSIS: Left knee arthritis OPERATION: Left knee arthroplasty SURGEON: JUAN WELDON ANESTHESIA: Spinal TISSUE REMOVED OR ALTERED: Bone to pathology ESTIMATED BLOOD LOSS: 100 PROCEDURE: Implants used: Femur: [place] triathlon size 7 CR femur Tibia: 7 tibia Tibial liner: 9 mm CS in insert Patella: 40 mm oval patella Procedure with the patient supine on the operating table the left the limb is prepped and draped in a sterile fashion. The limb was elevated for exsanguination and the tourniquet inflated to 280 torr. A standard midline median parapatellar approach the knee is taken. Access is gained to the femoral canal through the intercondylar notch. Intramedullary alignment instrumentation used to resect 10 mm of distal femur in 5 of valgus. Sizing guide indicated a size 7 femur. Appropriate cutting jig is then used to fashion anterior posterior and chamfer cuts. A trial reduction femurs performed and this is judged to be adequate. Attention was next turned to the tibia. Using an extra medullary alignment system 13 millimeters was resected off the lateral tibial plateau to make up for a medial tibial plateau defect. This is sized to a size 7 tibia. A trial reduction was now performed with a 7 femur and a 7 tibia using a 9 millimeters spacer. A lateral patellar release was performed. Knee range of motion is examined and there is full extension and central patellofemoral tracking. The articular surface the patella was next resected using an oscillating saw. All trial implants were removed. Polymethylmethacrylate is mixed and used to cement the above implants in place. On adequate curing the cement excess cement was removed the tourniquet was deflated hemostasis obtained the wound is then closed in layers using interrupted Vicryl followed by brie. A sterile compressive dressing was applied and the patient returned to recovery room in satisfactory condition.
[2017-09-28] MEDS ORDERED: ZOLPIDEM TARTRATE 5 MG TABLET PO PRN (08:45)
[2017-09-28] MEDS ORDERED: ACETAMINOPHEN 325 MG TABLET PO PRN (08:45)
[2017-09-28] MEDS ORDERED: RINGERS SOLUTION,LACTATED 1,000 ML IV PRN (08:45)
[2017-09-28] MEDS ORDERED: ONDANSETRON 4 MG TAB.RAPDIS PO PRN (08:45)
[2017-09-28] MEDS ORDERED: MORPHINE SULFATE 10 MG/ML INJ IM PRN (08:45)
[2017-09-28] MEDS ORDERED: ONDANSETRON HCL INJ/PF 4 MG/2 ML SDV IV PRN (08:45)
[2017-09-28] MEDS ORDERED: MAG HYDROX/AL HYDROX/SIMETH SUSP 30 ML UDCUP PO PRN (08:45)
--- NOTE | 2017-09-28 09:47 | RADIOLOGY REPORT (SQ) ---
EXAM DESCRIPTION: KNEE LEFT 2 VIEWS COMPLETED DATE/TIME: 09/28/2017 9:33 am REASON FOR STUDY: Post OP -Long Cassette in PACU M17.12 UNILATERAL PRIMARY OSTEOARTHRITIS, LEFT KNE E COMPARISON: None. NUMBER OF VIEWS: Two views left knee portable TECHNIQUE: Digital radiographic images of the left knee post-procedure. LIMITATIONS: None. FINDINGS: BONES: No worrisome or unexpected findings post-procedure. DEVICE: Total knee replacement with patellar resurfacing. SOFT TISSUES: No worrisome findings. Expected postoperative soft tissue changes. IMPRESSION: SATISFACTORY POSTOPERATIVE LEFT KNEE. TECHNICAL DOCUMENTATION: JOB ID: [id number] [employer]- All Rights Reserved Reading location - IP/workstation name: [email or web address]
[2017-09-28] MEDS ORDERED: LORATADINE 10 MG TABLET PO SCH (10:00)
[2017-09-28] MEDS ORDERED: PRENATAL VITAMIN W DHA CAPSULE PO SCH (10:00)
[2017-09-28] MEDS ORDERED: (PENDING PHARMACY ID) (Atenolol [Tenormin 100 Mg Tablet] 100 MG) PO SCH (10:00)
[2017-09-28] MEDS ORDERED: MULTIVITAMIN TABLET PO SCH (10:00)
[2017-09-28] MEDS ORDERED: PREGABALIN 75 MG CAPSULE PO SCH (10:00)
[2017-09-28] MEDS ORDERED: [UNRECOGNIZED DRUG - OTHER] PO SCH (10:00)
[2017-09-28] MEDS ORDERED: VIT B12 PO SCH (10:00)
[2017-09-28] MEDS ORDERED: B6 PO SCH (10:00)
[2017-09-28] MEDS ORDERED: ATORVASTATIN CALCIUM 40 MG TABLET PO SCH (10:00)
[2017-09-28] MEDS ORDERED: (PENDING PHARMACY ID) (Cyanocobalamin (Vitamin B-12) [Vitamin B12] 2,500 MCG) PO SCH (10:00)
[2017-09-28] MEDS ORDERED: ASCORBIC ACID 500 MG TABLET PO SCH (10:00)
[2017-09-28] MEDS ORDERED: FOLIC ACID PO SCH (10:00)
[2017-09-28] MEDS ORDERED: AMLODIPINE BESYLATE 5 MG TABLET PO SCH (10:00)
[2017-09-28] MEDS ORDERED: SENNOSIDES/DOCUSATE 8.6-50 MG 1 EACH TABLET PO SCH (10:00)
[2017-09-28] MEDS: OXYCODONE HCL SR 10 MG TABLET PO SCH ×2 (10:59→21:45)
[2017-09-28] MEDS ORDERED: ALLOPURINOL 300 MG TABLET PO ONE (11:00)
[2017-09-28] MEDS: ASPIRIN 81 MG TABLET, CHEWABLE PO SCH (11:00)
[2017-09-28] MEDS ORDERED: AMLODIPINE BESYLATE 5 MG TABLET PO ONE (11:30)
[2017-09-28] MEDS ORDERED: ATORVASTATIN CALCIUM 40 MG TABLET PO ONE (11:30)
[2017-09-28] MEDS ORDERED: ATENOLOL 50 MG TABLET PO ONE (11:30)
[2017-09-28] MEDS ORDERED: CYANOCOBALAMIN (VITAMIN B-12) 1,000 MCG TABLET PO ONE (11:30)
[2017-09-28] MEDS ORDERED: PRENATAL VITAMIN W DHA CAPSULE PO ONE (11:30)
[2017-09-28] MEDS ORDERED: PREGABALIN 75 MG CAPSULE PO ONE (11:30)
[2017-09-28] MEDS ORDERED: LORATADINE 10 MG TABLET PO ONE (11:30)
[2017-09-28] MEDS ORDERED: FAMOTIDINE 20 MG TABLET PO PRN (11:30)
[2017-09-28] MEDS ORDERED: ASCORBIC ACID 500 MG TABLET PO ONE (11:30)
[2017-09-28] MEDS ORDERED: SENNOSIDES/DOCUSATE 8.6-50 MG 1 EACH TABLET PO ONE (11:30)
[2017-09-28] MEDS ORDERED: CYANOCOBALAMIN/FA/PYRIDOXINE TABLET PO ONE (11:30)
[2017-09-28] MEDS ORDERED: LISINOPRIL 10 MG TABLET PO ONE (11:30)
[2017-09-28] MEDS: MORPHINE SULFATE 10 MG/ML INJ IV PRN (16:21)
[2017-09-28] MEDS ORDERED: LISINOPRIL PO SCH (18:00)
[2017-09-28] MEDS: SENNOSIDES/DOCUSATE 8.6-50 MG 1 EACH TABLET PO SCH (18:06)
[2017-09-28] MEDS ORDERED: VANCOMYCIN HCL 1,000 MG in DEXTROSE 5%-WATER 250 ML IV ONE (20:45)
[2017-09-28] MEDS: RIVAROXABAN 10 MG TABLET PO SCH (21:46)
[2017-09-29] MEDS: MORPHINE SULFATE 10 MG/ML INJ IV PRN ×3 (01:12→08:59)
[2017-09-29] MEDS: OXYCODONE HCL IR 5 MG TABLET PO PRN (05:26)
[2017-09-29] MEDS: LANSOPRAZOLE 30 MG TAB.RAP.DR PO SCH (05:26)
--- NOTE | 2017-09-29 06:54 | PDOC PROGRESS REPORT ---
Subjective Progress Note for:: 09/29/17 Reason For Visit: LEFT KNEE ARTHITIS 72-year-old white male postop day 1 left knee arthroplasty. Patient's "is "I am miserable. Physical Exam Vital Signs: Temp Pulse Resp BP Pulse Ox 37.6 C 79 20 102/54 L 94 09/29/17 04:02 09/29/17 04:02 09/29/17 04:02 09/29/17 04:02 09/29/17 04:02 Intake & Output 09/27/17 09/28/17 09/29/17 06:59 06:59 06:59 Intake Total 0 3738 Output Total 1735 Balance 0 2002 General appearance: PRESENT: mild distress Head exam: PRESENT: normocephalic Respiratory exam: PRESENT: unlabored Cardiovascular exam: PRESENT: RRR Pulses: PRESENT: +1 pedal pulses bilateral Vascular exam: PRESENT: normal capillary refill GI/Abdominal exam: PRESENT: soft Rectal exam: PRESENT: deferred Extremities exam: PRESENT: other - Left knee dressing with minor drainage in the OpSite dressing. Distal neurovascular examination is intact. Results Impressions: Knee X-Ray 09/28/17 08:47 IMPRESSION: SATISFACTORY POSTOPERATIVE LEFT KNEE. Status: Imported from PACS Assessment & Plan - Diagnosis (1) Arthritis of left knee Is this a current diagnosis for this admission?: Yes Plan: 72-year-old white male postop day 1 left knee arthroplasty patient made moderate progress with physical therapy yesterday ambulating 150 feet. Pain is still not controlled and patient is requiring IV morphine. This will preclude consideration of discharge today. Patient will continue to work with physical therapy today and I anticipate he will be discharged home with home health nursing tomorrow. - Time Time Spent with patient: 15-24 minutes Anticipated discharge: Home with Homehealth Within: within 24 hours
[2017-09-29 07:23] LABS: HEMATOCRIT 39.3 % (37.9-51.0); MEAN CORPUSCULAR HEMOGLOBIN 31.1 pg (27.0-33.4); MEAN CORPUSCULAR HGB CONC 33.2 g/dL (32.0-36.0); MEAN CORPUSCULAR VOLUME 94 fl (80-97); PLATELET COUNT 168 10^3/uL (150-450); RED BLOOD COUNT 4.19 10^6/uL (4.35-5.55); RED CELL DISTRIBUTION WIDTH 14.3 % (11.5-14.0)
[2017-09-29 07:33] LABS: ANION GAP 8 (5-19); BLOOD UREA NITROGEN 11 mg/dL (7-20); CALCIUM 8.6 mg/dL (8.4-10.2); CARBON DIOXIDE 26 mmol/L (22-30); CHLORIDE 102 mmol/L (98-107); GLUCOSE 117 mg/dL (75-110); POTASSIUM 4.2 mmol/L (3.6-5.0); SODIUM 135.6 mmol/L (137-145)
[2017-09-29] MEDS: LISINOPRIL 10 MG TABLET PO SCH (09:51)
[2017-09-29] MEDS: OXYCODONE HCL SR 10 MG TABLET PO SCH ×2 (09:53→22:10)
[2017-09-29] MEDS: CYANOCOBALAMIN (VITAMIN B-12) 1,000 MCG TABLET PO SCH (09:55)
[2017-09-29] MEDS: ASCORBIC ACID 500 MG TABLET PO SCH (09:56)
[2017-09-29] MEDS: AMLODIPINE BESYLATE 2.5 MG TABLET PO SCH (09:56)
[2017-09-29] MEDS: ASPIRIN 81 MG TABLET, CHEWABLE PO SCH (09:57)
[2017-09-29] MEDS: LORATADINE 10 MG TABLET PO SCH (09:57)
[2017-09-29] MEDS: PRENATAL VITAMIN W DHA CAPSULE PO SCH (09:58)
[2017-09-29] MEDS: ALLOPURINOL 300 MG TABLET PO SCH (09:58)
[2017-09-29] MEDS ORDERED: ATORVASTATIN CALCIUM 40 MG TABLET PO SCH ×2 (10:00→22:00)
[2017-09-29] MEDS: ATENOLOL 50 MG TABLET PO SCH (10:00)
[2017-09-29] MEDS ORDERED: CYANOCOBALAMIN (VITAMIN B-12) 1,000 MCG TABLET PO SCH (10:00)
[2017-09-29] MEDS ORDERED: AMLODIPINE BESYLATE 5 MG TABLET PO SCH (10:00)
[2017-09-29] MEDS ORDERED: CYANOCOBALAMIN/FA/PYRIDOXINE TABLET PO SCH (10:00)
[2017-09-29] MEDS: SENNOSIDES/DOCUSATE 8.6-50 MG 1 EACH TABLET PO SCH ×2 (10:18→18:20)
[2017-09-29] MEDS: PREGABALIN 75 MG CAPSULE PO SCH (22:10)
[2017-09-29] MEDS: RIVAROXABAN 10 MG TABLET PO SCH (22:13)
[2017-09-30] MEDS: LANSOPRAZOLE 30 MG TAB.RAP.DR PO SCH (06:16)
[2017-09-30 06:29] LABS: HEMATOCRIT 38.2 % (37.9-51.0); HEMOGLOBIN 12.8 g/dL (13.5-17.0); MEAN CORPUSCULAR HEMOGLOBIN 31.1 pg (27.0-33.4); MEAN CORPUSCULAR HGB CONC 33.4 g/dL (32.0-36.0); MEAN CORPUSCULAR VOLUME 93 fl (80-97); PLATELET COUNT 166 10^3/uL (150-450); RED BLOOD COUNT 4.11 10^6/uL (4.35-5.55); RED CELL DISTRIBUTION WIDTH 14.2 % (11.5-14.0)
--- NOTE | 2017-09-30 07:03 | PDOC DISCHARGE SUMMARY ---
General - Admit/Disc Date/PCP Admission Date/Primary Care Provider: 09/28/17 05:24 Discharge Date: 09/30/17 - Discharge Diagnosis (1) Arthritis of left knee Is this a current diagnosis for this admission?: Yes - Additional Information Resuscitation Status: Full Code Discharge Diet: As Tolerated, Regular Discharge Activity: Balance Activity w/Rest, No Driving, No tub bath Home Medications: Allopurinol [Zyloprim 300 mg Tablet] 300 mg PO DAILY 07/15/17 Amlodipine Besylate [Norvasc 5 mg Tablet] 2.5 mg PO DAILY 07/15/17 Ascorbic Acid [Vitamin C 500 mg Tablet] 1,000 mg PO DAILY 07/15/17 Atenolol [Tenormin 100 mg Tablet] 100 mg PO DAILY 07/15/17 Atorvastatin Calcium [Lipitor 40 mg Tablet] 40 mg PO DAILY 07/15/17 Cyanocobalamin (Vitamin B-12) [Vitamin B12] 2,500 mcg PO DAILY 07/15/17 Diclofenac Sodium [Voltaren] 75 mg PO BID 07/15/17 Lisinopril [Zestril] 60 mg PO QPM 07/15/17 Loratadine [Claritin 10 mg Tablet] 10 mg PO DAILY 07/15/17 Multivitamin [Multiple Vitamins] 1 tab PO DAILY 07/15/17 Ranitidine HCl [Zantac 150 mg Tablet] 150 mg PO DAILYP PRN 07/15/17 Aspirin 81 mg PO DAILY 09/17/17 Vit B12/Folic Acid/B6/Aa No.15 [Glycotrol Capsule] 2,500 mcg PO DAILY 09/17/17 Oxycodone HCl [Oxy-Ir 5 mg Tablet] 5 mg PO Q6HP PRN tablet 09/30/17 History of Present Illness History of Present Illness: SETRELLA GALVAN is a 72 year old male progressive left knee pain and functional disability. Patient is admitted for elective left knee arthroplasty. Hospital Course Hospital Course: Patient is admitted through the operating where he undergoes uncompensated left knee arthroplasty. He is returned to the floor in satisfactory condition. He seen by physical therapy on postop day 0. Function at that time is limited by pain. The patient makes limited progress with ambulation. He subsequently seen on postop day 1 and makes excellent progress with physical therapy. Dressing is changed on postop day 2. Plan for discharge home with home health nursing, home health physical therapy, wheeled walker, bedside commode. Physical Exam Vital Signs: Temp Pulse Resp BP Pulse Ox 37.5 C 80 16 119/55 L 90 L 09/29/17 23:11 09/29/17 23:11 09/29/17 23:11 09/29/17 23:11 09/29/17 23:11 Intake & Output 09/29/17 09/30/17 10/01/17 06:59 06:59 06:59 Intake Total 3738 1278 Output Total 1733 1400 Balance 2002 General appearance: PRESENT: no acute distress Head exam: PRESENT: normocephalic Respiratory exam: PRESENT: unlabored Cardiovascular exam: PRESENT: RRR Pulses: PRESENT: +1 pedal pulses bilateral Vascular exam: PRESENT: normal capillary refill GI/Abdominal exam: PRESENT: soft Rectal exam: PRESENT: deferred Extremities exam: PRESENT: other - Left knee dressing change. Wound is well approximated with brie. There is no erythema or active drainage at this point. Minimal pedal edema. Distal neurovascular examination is intact. Neurological exam: PRESENT: alert, awake, oriented to person, oriented to place , oriented to time, oriented to situation. ABSENT: motor sensory deficit Psychiatric exam: PRESENT: appropriate affect, normal mood. ABSENT: homicidal ideation, suicidal ideation Skin exam: PRESENT: dry, intact, warm. ABSENT: cyanosis, rash Results Laboratory Results: 09/30/17 06:14 09/29/17 06:17 09/29/17 09/29/17 09/30/17 06:17 06:17 06:14 WBC 15.0 H 15.0 H RBC 4.19 L 4.11 L Hgb 13.0 L 12.8 L Hct 39.3 38.2 MCV 94 93 MCH 31.1 31.1 MCHC 33.2 33.4 RDW 14.3 H 14.2 H Plt Count 168 166 Sodium 135.6 L Potassium 4.2 Chloride 102 Carbon Dioxide 26 Anion Gap 8 BUN 11 Creatinine 0.60 Est GFR ( Amer) > 60 Est GFR (Non-Af Amer) > 60 Glucose 117 H Calcium 8.6 Impressions: Knee X-Ray 09/28/17 08:47 IMPRESSION: SATISFACTORY POSTOPERATIVE LEFT KNEE. Status: Imported from PACS Qualifiers - * PATEINT BEING DISCHARGED WITH ANY OF THE FOLLOWING DIAGNOSIS?: No VTE patient discharged on overlapping Therapy?: Yes Plan Discharge Plan: Patient to be discharged home with home health nursing and home health physical therapy. Patient be weightbearing as tolerated on the left lower extremity. Follow-up with Dr. Rizo [facility] for surgery in 2 weeks for staple removal. Time Spent: Less than 30 Minutes
[2017-09-30] MEDS: CYANOCOBALAMIN (VITAMIN B-12) 1,000 MCG TABLET PO SCH (10:50)
[2017-09-30] MEDS: LISINOPRIL 10 MG TABLET PO SCH (10:51)
[2017-09-30] MEDS: ASCORBIC ACID 500 MG TABLET PO SCH (10:53)
[2017-09-30] MEDS: PRENATAL VITAMIN W DHA CAPSULE PO SCH (10:53)
[2017-09-30] MEDS: PREGABALIN 75 MG CAPSULE PO SCH (10:53)
[2017-09-30] MEDS: ASPIRIN 81 MG TABLET, CHEWABLE PO SCH (10:54)
[2017-09-30] MEDS: LORATADINE 10 MG TABLET PO SCH (10:54)
[2017-09-30] MEDS: ALLOPURINOL 300 MG TABLET PO SCH (10:54)
[2017-09-30] MEDS: SENNOSIDES/DOCUSATE 8.6-50 MG 1 EACH TABLET PO SCH ×2 (10:54→17:41)
[2017-09-30] MEDS: AMLODIPINE BESYLATE 2.5 MG TABLET PO SCH (10:54)
[2017-09-30] MEDS: ATENOLOL 50 MG TABLET PO SCH (10:56)
[2017-09-30] MEDS: OXYCODONE HCL IR 5 MG TABLET PO PRN ×2 (12:16→18:10)
[2017-09-30 17:40] VITALS: BP 129/64
== END 2017-09-30 18:26 | disposition home health service (06) | DRG 470 ==
LOC: INOR 05:24 → 4S 10:21
PROVIDERS: ADMIT Orthopaedic Surgery; ATTEND Orthopaedic Surgery
PROC: 0SRD0J9 Replacement of Left Knee Joint with Synthetic Substitute, Cemented, Open Approach (ICD-10-PCS; principal; 2017-09-28 07:30)
DX: M17.12 Unilateral primary osteoarthritis, left knee (principal); Z68.41 Body mass index [BMI] 40.0-44.9, adult; I10 Essential (primary) hypertension; M10.9 Gout, unspecified; K21.9 Gastro-esophageal reflux disease without esophagitis; E78.00 Pure hypercholesterolemia, unspecified; Z96.651 Presence of right artificial knee joint; E66.01 Morbid (severe) obesity due to excess calories; Z79.899 Other long term (current) drug therapy; Z82.49 Family history of ischemic heart disease and other diseases of the circulatory system
CPT/HCPCS: 01402; 36415; 80048; 82962; 85027; 88305; 88311; 94799; C2625; C9290; G8978-GP; G8979-GP; G8987-GO; G8988-GO; G8989-GO; J0131; J0690; J1100; J1741; J2250; J2270; J2405; J2704; J3010; J3370; J3490; J7050; J7060

== ENCOUNTER → 2018-12-13 | Outpatient (CLI) | payer MEDICARE ==
[~2018-12-13] MED LIST changes: +ALBUTEROL SULFATE 0.083% NEB 2.5 MG/3 ML AMPUL NEB ONE; -BUPIVACAINE INJ/PF LIPOSOME/PF 266 MG/20 ML SDV IJ PRN; -CEFAZOLIN INJ 1 GM VIAL IV PRN; -IBUPROFEN 800 MG/NS 250 ML IV PRN; -LACTATED RINGERS 1000 ML IV PRN; -LANSOPRAZOLE 15 MG TAB.RAP.DR PO PRN; -LIDOCAINE 0.5% INJ-PF (5 MG/ML) 50 ML SDV SUBCUT PRN; -OXYCODONE HCL SR 10 MG TABLET PO PRN; -VANCOMYCIN HCL 1,000 MG in DEXTROSE 5%-WATER 250 ML IV PRN
== END ==
LOC: RT 12:08
PROVIDERS: ATTEND Family Medicine Geriatric Medicine
DX: R06.02 Shortness of breath (principal)
CPT/HCPCS: 94729; 94727; 94060; A9270

== ENCOUNTER → 2018-12-31 | Outpatient (CLI) | payer MEDICARE ==
--- NOTE | 2018-12-31 12:59 | RADIOLOGY REPORT (SQ) ---
EXAM DESCRIPTION: CHEST PA/LATERAL COMPLETED DATE/TIME: 12/31/2018 12:42 pm REASON FOR STUDY: SOB COMPARISON: None. TECHNIQUE: Frontal and lateral radiographic views of the chest acquired. NUMBER OF VIEWS: Two view. LIMITATIONS: None. FINDINGS: LUNGS AND PLEURA: No consolidation, masses or pneumothorax. No pleural effusion. MEDIASTINUM AND HILAR STRUCTURES: Age-appropriate contour. HEART AND VASCULAR STRUCTURES: Heart normal size. No evidence for failure. BONES: No acute findings. HARDWARE: None in the chest. OTHER: No other significant finding. IMPRESSION: No acute findings. TECHNICAL DOCUMENTATION: JOB ID: [id number] [employer]- All Rights Reserved Reading location - IP/workstation name: [email or web address]
[2018-12-31 13:01] LABS: ABSOLUTE EOSINOPHILS # (AUTO) 0.4 10^3/uL (0.0-0.6); ABSOLUTE LYMPHOCYTES (AUTO) 1.5 10^3/uL (0.5-4.7); ABSOLUTE MONOCYTES (AUTO) 0.7 10^3/uL (0.1-1.4); ABSOLUTE NEUT (AUTO) 5.4 10^3/uL (1.7-8.2); BASOPHILS % (AUTO) 0.5 % (0-2); EOSINOPHILS % (AUTO) 4.7 % (0-6); HEMATOCRIT 46.1 % (37.9-51.0); HEMOGLOBIN 15.7 g/dL (13.5-17.0); LYMPHOCYTES % (AUTO) 18.5 % (13-45); MEAN CORPUSCULAR HEMOGLOBIN 32.2 pg (27.0-33.4); MEAN CORPUSCULAR VOLUME 95 fl (80-97); MONOCYTES % (AUTO) 9.2 % (3-13); PLATELET COUNT 187 10^3/uL (150-450); RED BLOOD COUNT 4.87 10^6/uL (4.35-5.55); RED CELL DISTRIBUTION WIDTH 15.2 % (11.5-14.0); SEGMENTED NEUTROPHILS % (AUTO) 67.1 % (42-78); TOTAL CELLS COUNTED % (AUTO) 100 %
[2018-12-31 13:25] LABS: ALANINE AMINOTRANSFERASE 54 U/L (21-72); ALBUMIN 4.1 g/dL (3.5-5.0); ALKALINE PHOSPHATASE 270 U/L (38-126); ANION GAP 11 (5-19); ASPARTATE AMINO TRANSFERASE 56 U/L (17-59); BILIRUBIN,DIRECT 0.5 mg/dL (0.0-0.4); BILIRUBIN,TOTAL 1.5 mg/dL (0.2-1.3); BLOOD UREA NITROGEN 15 mg/dL (7-20); CALCIUM 9.7 mg/dL (8.4-10.2); CARBON DIOXIDE 26 mmol/L (22-30); CHLORIDE 104 mmol/L (98-107); CHOLESTEROL 200.66 mg/dL (0-200); GLUCOSE 113 mg/dL (75-110); POTASSIUM 4.2 mmol/L (3.6-5.0); SODIUM 141.4 mmol/L (137-145); TOTAL PROTEIN 8.4 g/dL (6.3-8.2); TRIGLYCERIDES 151 mg/dL (<150); URIC ACID 4.3 mg/dL (3.5-8.5)
[2018-12-31 13:42] LABS: DIRECT LDL 151 mg/dL (<100)
[2018-12-31 13:57] LABS: VLDL CHOLESTEROL 30.2 mg/dL (10-31)
== END ==
LOC: OD 12:12
PROVIDERS: ATTEND Family Medicine Geriatric Medicine
DX: I10 Essential (primary) hypertension (principal); E87.5 Hyperkalemia; R06.02 Shortness of breath; R35.1 Nocturia; M10.9 Gout, unspecified; E66.9 Obesity, unspecified; Z79.899 Other long term (current) drug therapy
CPT/HCPCS: 36415; 71046; 80053; 80061; 84153; 84443; 84550; 85025

== ENCOUNTER → 2019-02-17 | Outpatient (CLI) | payer MEDICARE ==
[2019-02-17 09:40] LABS: ALBUMIN 3.9 g/dL (3.5-5.0); ALKALINE PHOSPHATASE 315 U/L (38-126); ASPARTATE AMINO TRANSFERASE 54 U/L (17-59); BILIRUBIN,DIRECT 0.5 mg/dL (0.0-0.4); BILIRUBIN,TOTAL 1.1 mg/dL (0.2-1.3); TOTAL PROTEIN 7.8 g/dL (6.3-8.2)
== END ==
LOC: OD 07:58
PROVIDERS: ATTEND Family Medicine Geriatric Medicine
DX: R73.9 Hyperglycemia, unspecified (principal); R94.5 Abnormal results of liver function studies; Z79.899 Other long term (current) drug therapy
CPT/HCPCS: 36415; 80076; 82947; 82950; 83036

== ENCOUNTER → 2019-02-22 | Outpatient (CLI) | payer MEDICARE ==
--- NOTE | 2019-02-22 10:59 | RADIOLOGY REPORT (SQ) ---
EXAM DESCRIPTION: U/S ABDOMEN LIMITED W/O DOP COMPLETED DATE/TIME: 02/22/2019 9:41 am REASON FOR STUDY: ABN LFT (R94.5) Z87.891 PERSONAL HISTORY OF NICOTINE DEPENDENCE R94.5 ABNORMAL R ESULTS OF LIVER FUNCTION STUDIES COMPARISON: None. TECHNIQUE: Dynamic and static grayscale images acquired of the abdomen and recorded on PACS. Additio nal selected color Doppler and spectral images recorded. LIMITATIONS: None. FINDINGS: PANCREAS: No masses. Visualized pancreatic duct normal caliber. LIVER: The liver measures 21.4 cm in length, prominent in size. The liver is heterogenous in appear ance. Multiple nodules visualized throughout the liver. One of the largest nodules in the right lob e is hyperechoic in appearance and measures 3.3 x 3.5 x 2.9 cm. A second large nodule measures 2.5 x 2.3 x 1.7 cm and is hypoechoic in appearance. No evidence of blood flow. Some of the largest no dules in the left lobe are hypoechoic in appearance and measure 4.9 x 4.3 x 4.4 cm and 2.6 x 1.5 x 2. 1 cm. No blood flow demonstrated. LIVER VASCULATURE: Normal directional flow of the main portal vein and hepatic veins. GALLBLADDER: Gallstones. The gallbladder wall measures 2.6 mm, normal wall thickness. No pericholec ystic fluid. ULTRASOUND-DETECTED DALE'S SIGN: Negative. INTRAHEPATIC DUCTS AND COMMON DUCT: CBD measures 3.4 mm in diameter, normal. The intrahepatic ducts normal caliber. No filling defects. INFERIOR VENA CAVA: Normal flow. AORTA: The proximal abdominal aortic segment measures 2.8 cm and is patent. The mid and distal segm ents are obscured by overlying bowel gas. RIGHT KIDNEY: The right kidney measures 12.0 x 5.8 x 5.5 cm, normal size. Normal echogenicity. A hy poechoic exophytic appearing mass mass in the upper pole measures 4.5 x 4.1 x 4.4 cm. No blood flow demonstrated. PERITONEAL AND RIGHT PLEURAL SPACE: No ascites or effusions. OTHER: No other significant findings. IMPRESSION: 1. Diffuse heterogenous echotexture to the liver. Hepatomegaly. Multiple nodules are visualized throughout the liver as above. Further evaluation with [address] Liver examination and/o r MRI Liver examination with and without IV contrast. Differential diagnosis includes possible metas tatic disease. 2. A fairly large exophytic right renal mass. Considerations for this finding includes possible rick plasm. 3. Gallstones. No evidence of biliary obstruction. 4. The mid and distal segments of the abdominal aorta are obscured by overlying bowel gas. TECHNICAL DOCUMENTATION: JOB ID: [id number] [email or web address]- All Rights Reserved Reading location - IP/workstation name: [email or web address]
== END ==
LOC: RAD 07:59
PROVIDERS: ATTEND Family Medicine Geriatric Medicine
DX: R16.0 Hepatomegaly, not elsewhere classified (principal); K76.0 Fatty (change of) liver, not elsewhere classified; K80.80 Other cholelithiasis without obstruction; N28.89 Other specified disorders of kidney and ureter; Z87.891 Personal history of nicotine dependence
CPT/HCPCS: 76705

== ENCOUNTER → 2019-04-03 | Outpatient (CLI) | payer MEDICARE ==
--- NOTE | 2019-04-06 08:39 | RADIOLOGY REPORT (SQ) ---
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 RADIONUCLIDE AND DOSE: 11.87 mCi F18 FDG The route of agent administration: Intravenous FASTING BLOOD SUGAR: 97 mg/dl CONTRAST TYPE AND DOSE: No CT contrast given. TECHNIQUE: Blood glucose level was verified. Above dose of FDG was injected intravenously. 2-D seg mented attenuation correction images were obtained through the entire body. Noncontrast CT images we re obtained for attenuation correction and fusion with emission images. CT images were performed wit hout oral or intravenous contrast and are not sensitive for parenchymal lesions. A series of overlap ping emission PET images were obtained. Images reviewed and manipulated at independent work station by the radiologist. Images stored on PACS. LIMITATIONS: None. FINDINGS: HEAD AND NECK: No areas of abnormal metabolic activity in the soft tissues of the head and neck. CHEST: No areas of abnormal metabolic activity in the chest. ABDOMEN AND PELVIS: Background liver activity max SUV 3.8. Previously-seen left hepatic lobe 5 cm le aidan is grossly stable in size and demonstrates no evidence of abnormal FDG uptake (max SUV 3.0). La rgest previously-seen the inferior right hepatic lobe hypodense lesion without significant increased FDG uptake (max SUV 3.5). No other focal areas of increased activity within the liver. No areas of abnormal metabolic activity in the abdomen or pelvis. Expected physiologic activity is present in th e genitourinary system and bowel. LOWER EXTREMITIES: No focal areas of pathologic abnormal FDG uptake. Mild asymmetric diffuse uptake within the skin and subcutaneous tissues of the left lower extremity with mildly asymmetric edema. BONES: No abnormal metabolic activity in the visualized skeleton. ADDITIONAL CT FINDINGS: No evidence of acute process. Scattered coronary atherosclerosis. Nodular h epatic contour. Grossly stable hypodense inferior right hepatic lobe lesion without significant incr eased FDG uptake. Cholelithiasis. Aortoiliac atherosclerosis. Peripherally calcified low-attenuati on exophytic right renal lesion (mean Hounsfield units -60). Aortoiliac atherosclerosis. IMPRESSION: 1. Previously-seen indeterminate bilobar hepatic lesions without focal increased FDG up take (max SUV 3.5, background liver activity 3.8) which favor a more indolent etiology. 2. Exophytic right renal lesion also without significant increased FDG uptake (max SUV 1.9). 3. No other abnormal areas of FDG uptake throughout the scan. Additional findings as above. TECHNICAL DOCUMENTATION: JOB ID: [id number] [employer]- All Rights Reserved Reading location - IP/workstation name: [email or web address]
== END ==
LOC: RAD 16:20
PROVIDERS: ATTEND Internal Medicine
DX: C43.59 Malignant melanoma of other part of trunk (principal); I25.10 Atherosclerotic heart disease of native coronary artery without angina pectoris; I70.0 Atherosclerosis of aorta; K80.20 Calculus of gallbladder without cholecystitis without obstruction
CPT/HCPCS: 78816; A9552

== ENCOUNTER 2019-04-19 10:46 | Day surgery (SDC) | payer MEDICARE ==
[2019-04-19 12:10] LABS: HEMATOCRIT 44.5 % (37.9-51.0); HEMOGLOBIN 14.9 g/dL (13.5-17.0); MEAN CORPUSCULAR HEMOGLOBIN 32.1 pg (27.0-33.4); MEAN CORPUSCULAR HGB CONC 33.4 g/dL (32.0-36.0); MEAN CORPUSCULAR VOLUME 96 fl (80-97); PLATELET COUNT 193 10^3/uL (150-450); RED BLOOD COUNT 4.64 10^6/uL (4.35-5.55); RED CELL DISTRIBUTION WIDTH 14.8 % (11.5-14.0); WHITE BLOOD COUNT 8.8 10^3/uL (4.0-10.5)
[2019-04-19 12:15] LABS: INTERNATIONAL RATION (INR) 1.06; PROTHROMBIN TIME 13.8 SEC (11.4-15.4)
[2019-04-19 12:28] LABS: BLOOD UREA NITROGEN 23 mg/dL (7-20)
[2019-04-19] MEDS ORDERED: FENTANYL CITRATE INJ/PF 100 MCG/2 ML AMPUL ONE (13:32)
[2019-04-19] MEDS ORDERED: MIDAZOLAM 2 MG/2 ML INJ ONE (13:33)
--- NOTE | 2019-04-19 15:58 | RADIOLOGY REPORT (SQ) ---
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 FLUORO TIME: 15.1 seconds 184 images saved to PACS. LIMITATIONS: None. PROCEDURE: The procedure, risks, benefits, and alternatives were discussed with the patient in the p reprocedural area, and all questions were answered. Informed consent was obtained verbally and in wri ting. The patient was then brought to the CT suite, positioned supine on the CT gurney, and a time-out was performed. After that, axial images of the abdomen were obtained for targeting of the fat containing lesion within segment V of the liver. Based on review of the axial images an appropriate access sit e was selected on the right upper quadrant. The area around selected access site was then prepped and draped 2% chlorhexidine utilizing standard sterile technique. After that, the access site was infiltrated with 1% lidocaine and an incision was made in the skin with a #11 blade. A 17 gauge coaxial needle was then advanced through the skin inci aidan and into the lesion utilizing CT fluoroscopic guidance. After that, the inner stylet of the coax ial needle was removed and 6 18 gauge core samples were obtained - the samples were collected and sub mitted to cytopathology in formalin. Then, as coaxial needle was removed, the biopsy track was embolized with Gelfoam. After the coaxial needle was removed axial images of the abdomen were repeated and reviewed ; the images demonstrated n o acute biopsy-related complication. The patient tolerated the procedure well without immediate complication. At the end of the procedure the patient's condition was unchanged from the preprocedural baseline. IV conscious sedation was administered at the direction of the performing physician by a iris palacio. 1 milligrams of Versed and 50 micrograms of fentanyl. Physiologic monitoring was provided befor e, during, and after sedation. The total sedation time was 15 minutes. Documentation of [id number] time the performing proceduralist spent monitoring the patient: 30 min utes. IMPRESSION: Successful CT-guided biopsy of the fat containing lesion within segment V of the liver a s detailed above. COMMENT: Patient medication list reviewed:Yes- Quality ID# 130:Eligible professional attests to docu menting in the medical record they obtained, updated, or reviewed the patient's current medications. Quality ID #76: The patient was prepped and draped using maximum sterile barrier technique including cap, mask, sterile gown, sterile gloves, a large sterile sheet, hand hygiene, and 2% Chlorhexidine fo r cutaneous antisepsis. When ultrasound is used, sterile ultrasound techniques are followed requiring sterile gel and sterile probes. Quality ID 145: Final reports for procedures using fluoroscopy that document radiation exposure beth lois, or exposure time and number of fluorographic images (if radiation exposure indices are not avail able) Quality ID# 436: Final reports with documentation of one or more dose reduction techniques (e.g., Aut omated exposure control, adjustment of the mA and/or kV according to patient size, use of iterative r econstruction technique) TECHNICAL DOCUMENTATION: JOB ID: [id number] [employer]- All Rights Reserved Reading location - IP/workstation name: [email or web address]
[2019-04-19 16:15] VITALS: BP 143/76
== END 2019-04-19 16:00 | disposition home or self-care (01) ==
LOC: RAD 10:46
PROVIDERS: ATTEND Internal Medicine
DX: C43.59 Malignant melanoma of other part of trunk (principal); K76.89 Other specified diseases of liver; K75.81 Nonalcoholic steatohepatitis (NASH); K74.0 Hepatic fibrosis; I10 Essential (primary) hypertension; E78.5 Hyperlipidemia, unspecified; E66.01 Morbid (severe) obesity due to excess calories; Z79.01 Long term (current) use of anticoagulants
CPT/HCPCS: 36415; 84520; 82565; 85027; 85610; 85730; 88342 ×2; 88341 ×2; 88305 ×2; 88313 ×2; 77012; 47000; J2250; J3010

== ENCOUNTER → 2019-06-08 | Outpatient (CLI) | payer MEDICARE ==
[2019-06-08 12:41] LABS: CHOLESTEROL 196.75 mg/dL (0-200); TRIGLYCERIDES 114 mg/dL (<150)
[2019-06-08 12:52] LABS: DIRECT LDL 145 mg/dL (<100)
== END ==
LOC: OD 11:33
PROVIDERS: ATTEND Family Medicine Geriatric Medicine
DX: E78.5 Hyperlipidemia, unspecified (principal); Z79.899 Other long term (current) drug therapy
CPT/HCPCS: 36415; 80061; 84460